=== PATIENT | female | born 1980 | race Caucasian/White ===

== ENCOUNTER 2018-08-30 19:12 | Emergency (ER) | payer MEDICAID ==
[~2018-08-30] VITALS: Ht 162.6 cm; Wt 78.6 kg
[2018-08-30 19:21] VITALS: Ht 162.6 cm; Wt 78.6 kg
[2018-08-30] MEDS ORDERED: CHOLESTEROL MED (19:23)
[2018-08-30] MEDS ORDERED: VOLTAREN75 MG PO (22:35)
[2018-08-30] MEDS ORDERED: PHENERGAN DM SYR5 ML PO (22:35)
[2018-08-30 23:03] VITALS: BP 115/78
== END 2018-08-30 23:03 | disposition home or self-care (01) ==
LOC: D.ER 19:12
DX: R09.1 Pleurisy (principal); R07.81 Pleurodynia; R05 Cough; M25.532 Pain in left wrist

== ENCOUNTER 2018-11-02 14:10 | Emergency (ER) | payer MEDICAID ==
[~2018-11-02] VITALS: Ht 162.6 cm; Wt 79.5 kg
[~2018-11-02 14:10] MED LIST: CHOLESTEROL MED; PHENERGAN DM SYR5 ML PO; VOLTAREN75 MG PO
[2018-11-02 14:17] VITALS: Ht 162.6 cm; Wt 79.5 kg
[2018-11-02 16:32] LABS: APPEARANCE CLEAR (CLEAR); BILIRUBIN NEGATIVE (NEGATIVE); COLOR YELLOW (YELLOW); GLUCOSE NEGATIVE (NEGATIVE); KETONE NEGATIVE (NEGATIVE); NITRITE NEGATIVE (NEGATIVE); PROTEIN TRACE mg/dL (NEGATIVE); SPECIFIC GRAVITY 1.025 (1.005-1.020); UROBILINOGEN NORMAL (NORMAL)
[2018-11-02 16:37] LABS: BACTERIA MODERATE /hpf (NONE SEEN); RED CELLS - URINE 0-5 /hpf (0-5); WHITE CELLS - URINE 0-5 /hpf (0-5)
[2018-11-02] MEDS ORDERED: ALBUTEROL SULF8.5 GM INH (17:05)
[2018-11-02] MEDS ORDERED: VIBRAMYCIN 100100 MG PO (17:05)
[2018-11-02 17:31] VITALS: BP 128/85
== END 2018-11-02 17:33 | disposition home or self-care (01) ==
LOC: D.ER 14:10
PROVIDERS: Emergency Medicine
DX: R05 Cough (principal); M79.18 Myalgia, other site; S29.011A Strain of muscle and tendon of front wall of thorax, initial encounter; X58.XXXA Exposure to other specified factors, initial encounter; Y93.89 Activity, other specified; Y92.89 Other specified places as the place of occurrence of the external cause; H66.93 Otitis media, unspecified, bilateral; J06.9 Acute upper respiratory infection, unspecified

== ENCOUNTER 2018-12-15 14:47 | Emergency (ER) | payer MEDICAID ==
[~2018-12-15] VITALS: Ht 162.6 cm; Wt 75.0 kg
[~2018-12-15 14:47] MED LIST changes: +ALBUTEROL SULF8.5 GM INH; +VIBRAMYCIN 100100 MG PO
[2018-12-15 15:34] VITALS: BP 107/67; Ht 162.6 cm; Wt 75.0 kg
[2018-12-15] MEDS ORDERED: DIFLUCAN150 MG PO (17:14)
== END 2018-12-15 18:05 | disposition home or self-care (01) ==
LOC: D.ER 14:47
PROVIDERS: Family Medicine
DX: J02.0 Streptococcal pharyngitis (principal); H66.92 Otitis media, unspecified, left ear

== ENCOUNTER 2019-05-17 13:34 | Emergency (ER) | payer MEDICAID ==
[~2019-05-17] VITALS: Ht 162.6 cm; Wt 72.7 kg
[~2019-05-17 13:34] MED LIST changes: +DIFLUCAN150 MG PO
[2019-05-17 13:42] VITALS: Ht 162.6 cm; Wt 72.7 kg
[2019-05-17] MEDS ORDERED: VOLTAREN75 MG PO (14:09)
[2019-05-17] MEDS ORDERED: MONODOX100 MG PO (14:09)
[2019-05-17 15:17] VITALS: BP 128/69
== END 2019-05-17 15:18 | disposition home or self-care (01) ==
LOC: D.ER 13:34
DX: L03.211 Cellulitis of face (principal)

== ENCOUNTER 2021-01-11 20:40 | Emergency (ER) | payer MEDICAID ==
[~2021-01-11] VITALS: Ht 162.6 cm; Wt 75.0 kg
[~2021-01-11 20:40] MED LIST changes: +MONODOX100 MG PO
[2021-01-11 20:46] VITALS: BP 107/72; Ht 162.6 cm; Wt 75.0 kg
[2021-01-11 21:13] LABS: BILIRUBIN NEGATIVE (NEGATIVE); KETONE NEGATIVE (NEGATIVE); NITRITE POSITIVE (NEGATIVE); UROBILINOGEN NORMAL mg/dL (< 2)
[2021-01-11 21:16] LABS: BACTERIA MANY HPF (NONE SEEN); SQUAMOUS EPITHELIAL 0-5 HPF (0-4); WHITE CELLS - URINE 0-5 HPF (0-4)
[2021-01-11] MEDS ORDERED: ZANAFLEX4 MG PO (21:20)
[2021-01-11] MEDS ORDERED: DICLOFENAC SODI50 MG PO (21:20)
[2021-01-11] MEDS ORDERED: MACROBID100 MG PO (21:20)
== END 2021-01-11 21:39 | disposition home or self-care (01) ==
LOC: D.ER 20:40
PROVIDERS: Emergency Medicine
DX: M54.16 Radiculopathy, lumbar region (principal); N39.0 Urinary tract infection, site not specified

== ENCOUNTER 2021-02-16 13:04 | Emergency (ER) | payer MEDICAID ==
[~2021-02-16] VITALS: Ht 162.6 cm; Wt 76.4 kg
[~2021-02-16 13:04] MED LIST changes: +DICLOFENAC SODI50 MG PO; +MACROBID100 MG PO; +ZANAFLEX4 MG PO
[2021-02-16 13:11] VITALS: BP 116/72; Ht 162.6 cm; Wt 76.4 kg
[2021-02-16] MEDS ORDERED: HYDROCODON-ACE1 EAC7 PO (13:39)
[2021-02-16] MEDS ORDERED: CLEOCIN HCL300 MG PO (13:39)
== END 2021-02-16 15:43 | disposition home or self-care (01) ==
LOC: D.ER 13:04
DX: T63.331A Toxic effect of venom of brown recluse spider, accidental (unintentional), initial encounter (principal); L02.01 Cutaneous abscess of face